=== PATIENT | male | born 1950 | race Caucasian/White ===

== ENCOUNTER 2021-05-22 12:59 | Outpatient (CLI) | payer MEDICARE, BC | END 2021-05-22 13:00 | disposition home or self-care (01) | LOC: CSHMRI 12:59 | PROVIDERS: ATTEND Nurse Practitioner Acute Care | DX: R41.89 Other symptoms and signs involving cognitive functions and awareness (principal); R90.82 White matter disease, unspecified | CPT/HCPCS: 70553; 82565 ==